=== PATIENT | male | born 1960 | race Caucasian/White ===

== ENCOUNTER 2017-04-19 23:19 | Emergency (ER) | payer OTHER ==
[~2017-04-19] VITALS: Ht 180.3 cm; Wt 96.6 kg
[2017-04-19] MEDS ORDERED: IV NORMAL SALINE 1000ML BAG 1,000 ML IV ONE (23:45)
[2017-04-20 00:09] LABS: BASO # 0.1 x10^3/uL (0.0-0.2); BASO % 1 % (0-3); EOS % 2 % (0-3); HEMATOCRIT 40.1 % (39.0-53.0); HEMOGLOBIN 13.5 g/dL (13.0-17.5); LYMPH # 1.9 x10^3/uL (1.0-4.8); LYMPH % 28 % (24-48); MEAN CORPUSCULAR HEMOGLOBIN 31 pg (25-35); MEAN CORPUSCULAR HGB CONC 34 g/dL (31-37); MEAN CORPUSCULAR VOLUME 92 fL (79-100); MONO % 13 % (0-9); NEUT % 56 % (31-73); PLATELET COUNT 232 x10^3/uL (140-400); RED BLOOD COUNT 4.38 x10^6/uL (4.30-5.70); RED CELL DISTRIBUTION WIDTH 13.1 % (11.5-14.5); WHITE BLOOD COUNT 6.7 x10^3/uL (4.0-11.0)
[2017-04-20 00:21] LABS: CREATININE 1.2 mg/dL (0.7-1.3); GFR 62.6; POTASSIUM 3.4 mmol/L (3.5-5.1)
[2017-04-20 00:28] LABS: ALBUMIN 3.9 g/dL (3.4-5.0); ALBUMIN/GLOBULIN RATIO 1.3 (1.0-1.7); MAGNESIUM 1.9 mg/dL (1.8-2.4); TOTAL BILIRUBIN 0.4 mg/dL (0.2-1.0); TOTAL PROTEIN 6.9 g/dL (6.4-8.2)
[2017-04-20 00:46] LABS: BILIRUBIN,URINE NEGATIVE (NEG); GLUCOSE,URINE NEGATIVE (NEG); NITRITE,URINE NEGATIVE (NEG); PH,URINE 5.5; PROTEIN,URINE NEGATIVE (NEG-TRACE); UROBILINOGEN,URINE 0.2 mg/dL (0.2 mg/dL)
[2017-04-20 00:52] LABS: BARBITURATES NEG (NEG); BENZODIAZEPINES NEG (NEG); CANNABINOIDS NEG (NEG); COCAINE NEG (NEG); METHADONE NEG (NEG); OPIATES NEG (NEG); PHENCYCLIDINE NEG (NEG)
[2017-04-20 00:56] LABS: BACTERIA,URINE 0 /HPF (0-FEW); RBC,URINE OCC /HPF (0-2); SQUAMOUS EPITHELIAL CELL,UR OCC /LPF; WBC,URINE OCC /HPF (0-4)
--- NOTE | 2017-04-20 00:56 | PHYS DOC ---
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 Patient says that he thought he was drinking enough water and Gatorade but admits that he was sweating profusely all day long. He denies any chest pain shortness of breath diaphoresis nausea vomiting. He says that he is feeling somewhat better however he still is having some cramping most noticeable in his left thigh and calf. Review of Systems Review of Systems Constitutional: Denies fever or chills [] Eyes: Denies change in visual acuity, redness, or eye pain [] HENT: Denies nasal congestion or sore throat [] Respiratory: Denies cough or shortness of breath [] Cardiovascular: No additional information not addressed in HPI [] GI: Denies abdominal pain, nausea, vomiting, bloody stools or diarrhea [] : Denies dysuria or hematuria [] Musculoskeletal: Denies back pain or joint pain [] Integument: Denies rash or skin lesions [] Neurologic: Denies headache, focal weakness or sensory changes [] Current Medications Current Medications Current Medications Medications (Trade) Dose Ordered Sig/Kiki Start Time Stop Time Status Last Admin Dose Admin Potassium Chloride (Klor-Con) 20 meq 1X ONCE 04/20/17 01:00 04/20/17 01:01 Sodium Chloride 1,000 ml @ 1,000 mls/hr 1X ONCE 04/19/17 23:45 04/20/17 00:44 DC 04/19/17 23:45 1,000 MLS/HR Allergies Allergies Allergies Coded Allergies Type Severity Reaction Last Updated Verified ciprofloxacin Allergy Intermediate labored breathing 09/02/14 Yes Physical Exam Physical Exam Constitutional: Well developed, well nourished, no acute distress, non-toxic appearance. [] HENT: Normocephalic, atraumatic, bilateral external ears normal, oropharynx moist, no oral exudates, nose normal. [] Eyes: PERRLA, EOMI, conjunctiva normal, no discharge. [] Neck: Normal range of motion, no tenderness, supple, no stridor. [] Cardiovascular:Heart rate regular rhythm, no murmur [] Lungs & Thorax: Bilateral breath sounds clear to auscultation [] Abdomen: Bowel sounds normal, soft, no tenderness, no masses, no pulsatile masses. [] Skin: Warm, dry, no erythema, no rash. [] Back: No tenderness, no CVA tenderness. [] Extremities: No tenderness, no cyanosis, no clubbing, ROM intact, no edema. [] Neurologic: Alert and oriented X 3, normal motor function, normal sensory function, no focal deficits noted. [ Current Patient Data Vital Signs Vital Signs Date Time Temp Pulse Resp B/P (MAP) Pulse Ox O2 Delivery O2 Flow Rate FiO2 04/19/17 23:34 98.1 85 16 146/92 (110) 96 Room Air 98.1 Lab Values Laboratory Tests Test 04/19/17 23:58 04/20/17 00:20 White Blood Count 6.7 x10^3/uL (4.0-11.0) Red Blood Count 4.38 x10^6/uL (4.30-5.70) Hemoglobin 13.5 g/dL (13.0-17.5) Hematocrit 40.1 % (39.0-53.0) Mean Corpuscular Volume 92 fL (79-100) Mean Corpuscular Hemoglobin 31 pg (25-35) Mean Corpuscular Hemoglobin Concent 34 g/dL (31-37) Red Cell Distribution Width 13.1 % (11.5-14.5) Platelet Count 232 x10^3/uL (140-400) Neutrophils (%) (Auto) 56 % (31-73) Lymphocytes (%) (Auto) 28 % (24-48) Monocytes (%) (Auto) 13 % (0-9) H Eosinophils (%) (Auto) 2 % (0-3) Basophils (%) (Auto) 1 % (0-3) Neutrophils # (Auto) 3.7 x10^3uL (1.8-7.7) Lymphocytes # (Auto) 1.9 x10^3/uL (1.0-4.8) Monocytes # (Auto) 0.9 x10^3/uL (0.0-1.1) Eosinophils # (Auto) 0.1 x10^3/uL (0.0-0.7) Basophils # (Auto) 0.1 x10^3/uL (0.0-0.2) Sodium Level 140 mmol/L (136-145) Potassium Level 3.4 mmol/L (3.5-5.1) L Chloride Level 104 mmol/L (98-107) Carbon Dioxide Level 26 mmol/L (21-32) Anion Gap 10 (6-14) Blood Urea Nitrogen 13 mg/dL (8-26) Creatinine 1.2 mg/dL (0.7-1.3) Estimated GFR (Cockcroft-Gault) 62.6 BUN/Creatinine Ratio 11 (6-20) Glucose Level 108 mg/dL (70-99) H Calcium Level 9.0 mg/dL (8.5-10.1) Magnesium Level 1.9 mg/dL (1.8-2.4) Total Bilirubin 0.4 mg/dL (0.2-1.0) Aspartate Amino Transferase (AST) 16 U/L (15-37) Alanine Aminotransferase (ALT) 24 U/L (16-63) Alkaline Phosphatase 75 U/L (46-116) Creatine Kinase 126 U/L (39-308) Total Protein 6.9 g/dL (6.4-8.2) Albumin 3.9 g/dL (3.4-5.0) Albumin/Globulin Ratio 1.3 (1.0-1.7) Ethyl Alcohol Level < 10 mg/dL (0-10) Urine Collection Type Unknown Urine Color Yellow Urine Clarity Clear Urine pH 5.5 Urine Specific Brock 1.025 Urine Protein Negative mg/dL (NEG-TRACE) Urine Glucose (UA) Negative mg/dL (NEG) Urine Ketones (Stick) Negative mg/dL (NEG) Urine Blood Negative (NEG) Urine Nitrite Negative (NEG) Urine Bilirubin Negative (NEG) Urine Urobilinogen Dipstick 0.2 mg/dL (0.2 mg/dL) Urine Leukocyte Esterase Negative (NEG) Urine RBC Occ /HPF (0-2) Urine WBC Occ /HPF (0-4) Urine Squamous Epithelial Cells Occ /LPF Urine Bacteria 0 /HPF (0-FEW) Urine Hyaline Casts Occasional /HPF Urine Mucus Marked /LPF Urine Opiates Screen Neg (NEG) Urine Methadone Screen Neg (NEG) Urine Barbiturates Neg (NEG) Urine Phencyclidine Screen Neg (NEG) Urine Amphetamine/Methamphetamine Neg (NEG) Urine Benzodiazepines Screen Neg (NEG) Urine Cocaine Screen Neg (NEG) Urine Cannabinoids Screen Neg (NEG) Urine Ethyl Alcohol Neg (NEG) Laboratory Tests 04/19/17 23:58 Laboratory Tests 04/19/17 23:58 EKG EKG [] Radiology/Procedures Radiology/Procedures [] Course & Med Decision Making Course & Med Decision Making Patient looks well with normal vital signs. Patient received a liter of IV fluids and a potassium pill. Patient is feeling better and back to his baseline and is requesting to go home so he'll be discharged in stable condition and told to drink plenty fluids called his primary care provider in 2- 3 days and come back to the ER sooner with any worsening pain fevers vomiting or other general concerns. Patient verbalized understanding of the above instructions. Dragon Disclaimer Dragon Disclaimer This electronic medical record was generated, in whole or in part, using a voice recognition dictation system. Departure Departure Impression: Primary Impression: Dehydration Additional Impression: Hypokalemia Disposition: 01 HOME, SELF-CARE Condition: GOOD Referrals: BELLE MATOS MD (PCP) Patient Instructions: Hypokalemia Problem Qualifiers RICHA WILSON DO Apr 20, 2017 00:56
[2017-04-20 00:58] VITALS: BP 131/83
[2017-04-20] MEDS ORDERED: POTASSIUM CHLORIDE 20 MEQ TABLET.ER. PO ONE (01:00)
== END 2017-04-20 01:08 | disposition home or self-care (01) ==
LOC: ER 23:19
DX: E86.0 Dehydration (principal); E87.6 Hypokalemia; E78.00 Pure hypercholesterolemia, unspecified; Z88.1 Allergy status to other antibiotic agents
CPT/HCPCS: 36415; 80053; 80305; 81001; 82550; 83735; 85027; 96360; 99284; C1887; G0480; J7030; G0481

== ENCOUNTER → 2018-08-14 | Outpatient (CLI) | payer OTHER ==
--- NOTE | 2018-08-14 12:11 | KCIC ---
MRI left shoulder without contrast dated 08/14/2018 Indication: Shoulder pain pain for 8 months repetitive motion injury. Comparison: No comparison is available. Technique: Routine multiplanar multisequence imaging performed. . Findings: Intermediate T2 signal throughout the supraspinatus and infraspinatus portions of the rotator cuff. There is a small full-thickness tear versus high-grade partial tear of the anterior supraspinatus footplate that measures about 6 mm in size. No significant cuff retraction. No subscapularis is of intermediate signal but otherwise intact. Moderate hypertrophic change of the AC joint. Mild undersurface spurring of the acromium. No significant subacromial/subdeltoid bursal fluid. Acromion type I morphology. Mild increased signal in the substance of the long head biceps tendon proximally. Extra articular portion courses within the bicipital groove. Biceps anchor intact. Mild hypertrophic change of the glenohumeral joint. No full-thickness cartilage defect. No joint effusion or loose body. There is minimal blunting of the posterior superior labrum. No discrete labral tear. IMPRESSION: 1. Rotator cuff tendinopathy with small full-thickness tear versus high-grade partial tear of the anterior supraspinatus footplate. 2. Mild to moderate AC joint arthropathy with mild undersurface spurring of the acromium. 3. Mild biceps tendinosis. 4. Minimal blunting of the posterior superior labrum suggesting degenerative type I SLAP tear. Electronically signed by: Sameer Shannon MD (08/14/2018 12:07 PM) [facility]
== END | disposition home or self-care (01) ==
LOC: KCIC MRI 10:40
PROVIDERS: ATTEND Orthopaedic Surgery Sports Medicine
DX: M12.812 Other specific arthropathies, not elsewhere classified, left shoulder (principal); M75.82 Other shoulder lesions, left shoulder
CPT/HCPCS: 73221

== ENCOUNTER 2018-09-25 08:06 | Day surgery (SDC) | payer OTHER ==
[~2018-09-25] VITALS: Ht 182.9 cm; Wt 101.2 kg
[~2018-09-25 08:06] MED LIST: BUPIVACAINE MPF 0.5% 30 ML VIAL. ONE; EPINEPHrine VIAL 30 MG/30 ML VIAL ONE; HYDROmorphone 2 MG/ML VIAL IV PRN; IV RINGERS,LACTATED 1000ML 1,000 ML IV SCH; LIDOCAINE 1% 20 ML VIAL. ONE; LIDOCAINE 1% PF 2 ML VIAL. ID PRN; MORPHINE SULFATE 2 MG/ML VIAL. IV PRN; ONDANSETRON PF 4 MG/2 ML VIAL. IV PRN; PHEN118L PO; PROCHLORPERAZINE 10 MG/2 ML VIAL. IV PRN; SIMV80TA17 PO; fentaNYL PF VIAL 100 MCG/2 ML VIAL IV PRN
--- NOTE | 2018-09-25 08:24 | DISCH ---
DISCHARGE INSTRUCTIONS Condition on Discharge Condition on Discharge: Stable Activity After Discharge Activity Instructions for Disc: Other, see below Other activity instructions: arm to remain in sling Bathing Instructions: Shower-keep dressing dry Diet after Discharge Diet after Discharge: Regular Wound Incision Care Wound/Incision Care: Keep wound/cast CDI, Change dressing Other wound/incision instructi: ok to chagne dressing after [address] after DC Call your doctor for: Concerns you may have Follow-Up Follow up with: Morenita in 2-3 wks GAMAL YADAV II, MD Sep 25, 2018 08:24
[2018-09-25] MEDS ORDERED: BUPIVACAINE MPF 0.5% 30 ML VIAL. ONE (08:40)
[2018-09-25] MEDS ORDERED: DEXAMETHASONE SOD PHOS 20 MG/5 ML VIAL. ONE (08:41)
[2018-09-25] MEDS ORDERED: PROPOFOL 20 ML IV ONE (08:41)
[2018-09-25] MEDS ORDERED: ROCURONIUM 50 MG/5 ML VIAL. ONE (08:41)
[2018-09-25] MEDS ORDERED: fentaNYL PF VIAL 100 MCG/2 ML VIAL ONE (08:41)
[2018-09-25] MEDS ORDERED: MIDAZOLAM HCL/PF 2 MG/2 ML VIAL. ONE (08:42)
[2018-09-25] MEDS ORDERED: LIDOCAINE 2% PF Vial for OR 5 ML VIAL. ONE (08:42)
[2018-09-25] MEDS ORDERED: ONDANSETRON PF 4 MG/2 ML VIAL. ONE (08:42)
[2018-09-25] MEDS ORDERED: EPINEPHrine VIAL 30 MG/30 ML VIAL ONE (09:48)
[2018-09-25] MEDS ORDERED: PHENYLEPHRINE 10 MG/ML VIAL. ONE (09:49)
[2018-09-25] MEDS ORDERED: NEOSTIGMINE METHYLSULFATE 5 MG/5 ML SYRINGE. ONE (10:06)
[2018-09-25] MEDS ORDERED: GLYCOPYRROLATE 1 MG/5 ML VIAL. ONE (10:06)
[2018-09-25] MEDS ORDERED: SEVOFLURANE 61 TO 120 MINUTES. IH ONE (10:08)
--- NOTE | 2018-09-25 10:19 | PDOC4 ---
Operative Note Operative Note Date of procedure: 09/25/2018 Surgeon: Rodney Yadav Clam Grader: Kaylah Hobbs, certified breastfeeding educator Preoperative diagnosis: Left shoulder rotator cuff tear Postoperative diagnosis: Same Procedure performed: Left shoulder arthroscopic rotator cuff repair, single anchor Anesthesia: Gen. plus regional nerve block Findings: partial thickness tear at SS Intact rotator cuff otherwise Degenerative fraying at labrum Grade I-II changes at glenoid, otherwise cartilage intact No loose bodies Unremarkable biceps Blood loss:10 mL Complications:none Components inserted: Galvan and nephew helacoil suture anchor Reason for procedure: Patient is very pleasant gentleman who I been following for some time for his left shoulder complaints. Clinical and radiographic examination including MRI were consistent with the above preoperative diagnosis and after failure of conservative therapies, we had a discussion of the risks, benefits, and alternatives to surgery and he wished to proceed. Description of procedure: Patient was greeted in the preoperative area where the correct extremity was verified and marked. He was taken to the preoperative holding area where a regional nerve block was placed by the anesthesiology team. He was taken back to the operative suite and his antibiotics were started as he was brought back. Once in the operating room, patient was transferred gently supine to the operating table and secured to the bed with all pressure points padded and sat up in a beachchair position, maintaining C-spine in neutral position, large pad under his legs, although this occurred after successful induction of a general anesthetic. After this, the operative arm and shoulder girdle were prepped and draped in our usual sterile fashion including Ioban at the periphery. I then palpated and marked surface anatomy and used a spinal needle to localize a posterior superior portal after we conducted our standard preoperative timeout. I then incised skin in accordance with the spinal needle and introduce the blunt arthroscopic trocar into the glenohumeral joint. The camera was white balanced. A spinal needle was used to localize an anterosuperior portal, I incised skin and dilated this hole as well. I then introduced my probe and conducted my diagnostic arthroscopy with the above- noted findings. After this, I debrided some degenerative fraying of his labrum. I then used a spinal needle to localize a lateral portal after visualizing the rotator cuff tear and past a PDS suture through shuttled out the anterosuperior portal to travis the area. I then repositioned the subacromial space and performed a bursectomy with combination of shaver and electrocautery device. Once I had adequate visualization, I debrided the rotator cuff, I was easily able to violate the substance of the rotator cuff with a blunt trocar,and placed my suture anchor, shuttling the sutures through with the first pass device in a simple configuration. I had created an accessory anterolateral portal for suture management. I then tied them down from posterior to anterior using arthroscopic knot-tying techniques. The repair was tested and gentle rotation and probing, it was stable. I then removed all excess debris and the arthroscopic fluid. I then removed the arthroscopic instrumentation. Portals were closed with simple interrupted 3-0 nylon. The shoulder was then cleansed and dried and a sterile bulky dressing was applied followed by an abduction pillow sling. Patient was laid supine and transferred gently supine to the recovery room cart and taken to PACU in a stable and extubated condition. No complications. Postoperative plan is be nonweightbearing for 4 weeks. I will see him back in clinic in 2-3 weeks. Patient will be discharged home today. RODNEY YADAV II, MD Sep 25, 2018 10:19
[2018-09-25] MEDS ORDERED: DOCU-109 PO (11:11)
[2018-09-25] MEDS ORDERED: OXYC1TAB15 PO (11:11)
[2018-09-25] MEDS ORDERED: ONDA8TAB9 PO (11:12)
[2018-09-25 11:35] VITALS: BP 111/70
[2018-09-25] MEDS ORDERED: oxyCODONE/APAP 5/325 1 TAB TABLET PO ONE (11:45)
== END 2018-09-25 12:36 | disposition home or self-care (01) ==
LOC: SURG 08:06
PROVIDERS: ATTEND Orthopaedic Surgery Sports Medicine
DX: M75.112 Incomplete rotator cuff tear or rupture of left shoulder, not specified as traumatic (principal); M24.112 Other articular cartilage disorders, left shoulder; I10 Essential (primary) hypertension; E78.5 Hyperlipidemia, unspecified; G47.33 Obstructive sleep apnea (adult) (pediatric); Z88.1 Allergy status to other antibiotic agents; Z88.8 Allergy status to other drugs, medicaments and biological substances; N40.0 Benign prostatic hyperplasia without lower urinary tract symptoms; M19.90 Unspecified osteoarthritis, unspecified site; Z72.89 Other problems related to lifestyle; Z98.890 Other specified postprocedural states; Z98.42 Cataract extraction status, left eye; Z98.41 Cataract extraction status, right eye; Z96.1 Presence of intraocular lens; Z79.899 Other long term (current) drug therapy
CPT/HCPCS: 29827; A7015; C1782; J0171; J0690; J1100; J2001; J2250; J2405; J2704; J2710; J3010; J3490